=== PATIENT | female | born 1990 | race Two or more races ===

== ENCOUNTER 2017-06-01 23:58 | Inpatient (IN) | payer BC ==
[~2017-06-01] VITALS: Ht 165.1 cm; Wt 81.2 kg
[2017-06-02] MEDS ORDERED: OXYTOCIN 30 UNIT/500 ML PREMIX 500 ML IV PRN ×2 (00:45→15:30)
[2017-06-02] MEDS ORDERED: TERBUTALINE 1 MG/ML VIAL. SQ PRN (00:45)
[2017-06-02] MEDS ORDERED: fentaNYL PF VIAL 100 MCG/2 ML VIAL IV PRN (00:45)
[2017-06-02] MEDS ORDERED: 0.9 % SODIUM CHLORIDE 10 ML DISP.SYRIN. IV PRN ×2 (00:45→15:30)
[2017-06-02] MEDS ORDERED: LIDOCAINE 1% PF 30 ML VIAL. INJ PRN (00:45)
[2017-06-02] MEDS ORDERED: BUTORPHANOL 2 MG/ML VIAL. IV PRN (00:45)
[2017-06-02] MEDS ORDERED: IBUPROFEN 600 MG TABLET. PO PRN (00:45)
[2017-06-02 01:44] LABS: HEMATOCRIT 39.7 % (36.0-47.0); HEMOGLOBIN 13.6 g/dL (12.0-15.5); RED BLOOD COUNT 4.53 x10^6/uL (3.50-5.40); RED CELL DISTRIBUTION WIDTH 13.7 % (11.5-14.5)
[2017-06-02 01:50] VITALS: BP 118/73
[2017-06-02] MEDS: IV RINGERS,LACTATED 1000ML 1,000 ML IV SCH ×2 (02:30→08:26)
--- NOTE | 2017-06-02 15:21 | PDOC1 ---
OB - History Hx of Present Care: Good Care Ultrasounds: Normal mid trimester US Obstetrical Complications: None Medical Complications: None Past Family/Social History * Past Medical, Surgical, Family and Obstetric Histories reviewed from chart. Rubella: Immune RPR/VDRL: Negative GBS Status: Negative HBsAG: Negative OB - Chief Complaint & HPI Date of Admission: Date of Admission: Jun 01, 2017 at 23:58 Chief Complaint/History : 1 EGA: 38 Reason for admission: active labor, rupture of membranes Admission Nurse Assessment Rev: Yes Problems: OB - Admission Exam Physical Exam Vitals: VS - Last 72 Hours, by Label Date Time Temp Pulse Resp B/P (MAP) Pulse Ox O2 Delivery O2 Flow Rate FiO2 06/02/17 11:14 18 Room Air 06/02/17 01:50 98.6 88 20 118/73 (88) Room Air 98.6 HEENT: Normal Heart: Regular Rate Lungs: Clear Abdomen: Gravid, Non tender, Soft Extremities: Edema Reflexes: Normal Cervical Dilatation: 5cm Effacement: 75% Station: -2 Membranes: Ruptured Amniotic Fluid: Clear Heart Rate: Normal Accelerations: Accelerations Present Decelerations: No decelerations Contractions on Admission: < 5 Minutes Apart Intensity: Firm Text A: 38 wks IUP SROM Active labor P; Admit for labor management. GIRISH KENDRICK Jr, MD Jun 02, 2017 15:21
--- NOTE | 2017-06-02 15:22 | PDOC ---
VAGINAL DELIVERY DATE DATE: 06/02/17 TIME: 15:21 : 1 Para: 1 EGA: 38 VAGINAL DELIVERY: VTX VACCUM ASSISTED: No PLACENTA: Spontaneous 8/9 SEX: Male WEIGHT Weight [ 2890 gm] Nuchal Cord: No Amniotic Fluid: Clear PAIN: Natural EPISIOTOMY: Yes (2nd degree midlilne episiotomy) EXTENSION: No REPAIRED WITH 3-0 vicryl EBL 300 ml COMPLICATIONS none CONDITION pt. stable Signs of Intrauterine Infectio: None Shoulder Dystocia: No Problems: GIRISH KENDRICK Jr, MD Jun 02, 2017 15:22
[2017-06-02] MEDS ORDERED: diphenhydrAMINE HCL 25 MG CAPSULE PO PRN (15:30)
[2017-06-02] MEDS ORDERED: oxyCODONE/APAP 5/325 1 TAB TABLET PO PRN (15:30)
[2017-06-02] MEDS ORDERED: IBUPROFEN 800 MG TABLET. PO PRN (15:30)
[2017-06-02] MEDS ORDERED: ACETAMINOPHEN 325 MG TABLET. PO PRN (15:30)
[2017-06-02] MEDS ORDERED: ZOLPIDEM 5 MG TABLET. PO PRN (15:30)
[2017-06-02] MEDS ORDERED: DOCUSATE SODIUM 100 MG CAPSULE. PO PRN (15:30)
[2017-06-02] MEDS ORDERED: BENZOCAINE 20% TOPICAL AEROSOL SPRAY 57GM CAN. TP PRN (15:30)
[2017-06-02] MEDS ORDERED: MMR per PROTOCOL. MC PRN (15:30)
[2017-06-02] MEDS ORDERED: PHENYLEPH/MINERAL OIL/PETROLAT RECTAL OINTMENT 28GM TUBE. RC PRN (15:30)
[2017-06-02] MEDS ORDERED: SIMETHICONE 80 MG TAB.CHEW PO PRN (15:30)
[2017-06-02] MEDS ORDERED: MAG HYDROX/ALUMINUM HYD/SIMETH 30 ML ORAL.SUSP PO PRN (15:30)
[2017-06-02] MEDS ORDERED: MAGNESIUM HYDROXIDE 2,400 MG/30 ML ORAL.SUSP. PO PRN (15:30)
[2017-06-02] MEDS ORDERED: HYDROCORTISONE 1% TOPICAL OINTMENT 30GM TUBE. TP PRN (15:30)
[2017-06-02] MEDS ORDERED: FERROUS SULFATE 325 MG TABLET. PO SCH (17:00)
[2017-06-02 20:42] VITALS: BP 108/52
[2017-06-02 22:11] LABS: RPR REFLEX Non Reactive (Non Reactive)
[2017-06-03 00:46] VITALS: BP 89/37
[2017-06-03 06:21] LABS: BASO % 0 % (0-3); EOS % 0 % (0-3); HEMATOCRIT 33.3 % (36.0-47.0); HEMOGLOBIN 11.3 g/dL (12.0-15.5); LYMPH # 1.9 x10^3/uL (1.0-4.8); LYMPH % 11 % (24-48); MEAN CORPUSCULAR HEMOGLOBIN 30 pg (25-35); MEAN CORPUSCULAR HGB CONC 34 g/dL (31-37); MEAN CORPUSCULAR VOLUME 89 fL (79-100); MONO % 8 % (0-9); NEUT % 81 % (31-73); PLATELET COUNT 120 x10^3/uL (140-400); RED BLOOD COUNT 3.76 x10^6/uL (3.50-5.40); RED CELL DISTRIBUTION WIDTH 13.5 % (11.5-14.5); WHITE BLOOD COUNT 18.4 x10^3/uL (4.0-11.0)
[2017-06-03 06:29] VITALS: BP 104/56
--- NOTE | 2017-06-03 09:10 | PDOC ---
Provider Note Provider Note Doing well VSS uterus NTTP FU in AM AUBRIE GAMBLE MD Jun 03, 2017 09:10
[2017-06-03 10:10] LABS: PLT ESTIMATE ADEQUATE (ADEQUATE)
[2017-06-03 11:20] VITALS: BP 102/58
[2017-06-03 15:45] VITALS: BP 99/56
[2017-06-03 21:40] VITALS: BP 84/50
[2017-06-04 05:27] VITALS: BP 96/61
--- NOTE | 2017-06-04 06:18 | DISCH ---
DISCHARGE INSTRUCTIONS Condition on Discharge Condition on Discharge: Stable Activity After Discharge Activity Instructions for Disc: Activity as tolerated Lifting Instructions after Dis: No heavy lifting Driving Instructions after Dis: Do not drive today Diet after Discharge Diet after Discharge: Regular Contacting the DRAsif after DC Call your doctor for: Concerns you may have Follow-Up Follow up with: Desiree in 6 weeks. GIRISH KENDRICK Jr, MD Jun 04, 2017 06:18
--- NOTE | 2017-06-04 06:18 | PDOC ---
OB Progress Note Date of Service 06/04/17 Time of Evaluation 0615 Notes Pt. feeling well. No complaints. Lab Laboratory Tests Test 06/03/17 04:35 White Blood Count 18.4 x10^3/uL (4.0-11.0) Red Blood Count 3.76 x10^6/uL (3.50-5.40) Hemoglobin 11.3 g/dL (12.0-15.5) Hematocrit 33.3 % (36.0-47.0) Mean Corpuscular Volume 89 fL (79-100) Mean Corpuscular Hemoglobin 30 pg (25-35) Mean Corpuscular Hemoglobin Concent 34 g/dL (31-37) Red Cell Distribution Width 13.5 % (11.5-14.5) Platelet Count 120 x10^3/uL (140-400) Neutrophils (%) (Auto) 81 % (31-73) Lymphocytes (%) (Auto) 11 % (24-48) Monocytes (%) (Auto) 8 % (0-9) Eosinophils (%) (Auto) 0 % (0-3) Basophils (%) (Auto) 0 % (0-3) Neutrophils # (Auto) 14.8 x10^3uL (1.8-7.7) Lymphocytes # (Auto) 1.9 x10^3/uL (1.0-4.8) Monocytes # (Auto) 1.5 x10^3/uL (0.0-1.1) Eosinophils # (Auto) 0.1 x10^3/uL (0.0-0.7) Basophils # (Auto) 0.0 x10^3/uL (0.0-0.2) Segmented Neutrophils % 55 % (35-66) Band Neutrophils % 28 % (0-9) Lymphocytes % 9 % (24-48) Monocytes % 8 % (0-10) Platelet Estimate Adequate (ADEQUATE) Medications Current Medications Sodium Chloride (Normal Saline Flush) 3 ml QSHIFT PRN IV AFTER MEDS AND BLOOD DRAWS; Start 06/02/17 at 00:45 Ringer's Solution 1,000 ml @ 125 mls/hr Q8H IV Last administered on 06/02/17t 08:26; Start 06/02/17 at 00:38 Butorphanol Tartrate (Stadol) 2 mg PRN Q1HR PRN IV Severe labor pain; Start 06/02/17 at 00:45 Fentanyl Citrate (Fentanyl 2ml Vial) 100 mcg PRN Q30MIN PRN IV Severe pain Last administered on 06/02/17 11:14; Start 06/02/17 at 00:45 Terbutaline Sulfate (Brethine) 0.25 mg 1X PRN PRN SQ SEE COMMENTS; Start at 00:45; Stop 06/03/17 at 00:44; Status DC Lidocaine HCl 30 ml 1X PRN PRN INJ SEE COMMENTS Last administered on 06/02/17 15:01; Start 06/02/17 at 00:45; Stop 06/04/17 at 00:44; Status DC Oxytocin/Sodium Chloride 500 ml @ 0 mls/hr CONT PRN PRN IV Post delivery bleeding Last administered on 06/02/17 02:30; Start 06/02/17 at 00:45 Ibuprofen (Motrin) 600 mg PRN Q6HRS PRN PO PAIN; Start 06/02/17 at 00:45; Stop 06/02/17 at 18:19; Status DC Sodium Chloride (Normal Saline Flush) 10 ml QSHIFT PRN IV AFTER MEDS AND BLOOD DRAWS; Start 06/02/17 at 15:30 Oxytocin/Sodium Chloride 500 ml @ 62.5 mls/hr CONT PRN IV SEE I/O RECORD; Start 06/02/17 at 15:30; Stop 06/02/17 at 23:29; Status DC Acetaminophen (Tylenol) 650 mg PRN Q6HRS PRN PO MILD PAIN / TEMP; Start at 15:30 Ibuprofen (Motrin) 800 mg PRN Q8HRS PRN PO INFLAMMATION/PAIN PREVENTION Last administered on 06/02/17 17:09; Start 06/02/17 at 15:30 Docusate Sodium (Colace) 100 mg PRN BID PRN PO CONSTIPATION; Start 06/02/17 at 15:30 Magnesium Hydroxide (Milk Of Magnesia) 2,400 mg PRN DAILY PRN PO CONSTIPATION; Start 06/02/17 at 15:30 Al Hydroxide/Mg Hydroxide (Mylanta Plus Xs) 30 ml PRN Q4HRS PRN PO HEARTBURN / GAS; Start 06/02/17 at 15:30 Simethicone (Gas-X) 80 mg PRN AFTMEALHC PRN PO GAS / BLOATING; Start 06/02/17 at 15:30 Diphenhydramine HCl (Benadryl) 25 mg PRN Q6HRS PRN PO ITCHING; Start 06/02/17 at 15:30 Benzocaine (Americaine) 1 spray PRN QID PRN TP TOPICAL PAIN Last administered on 06/02/17t 17:11; Start 06/02/17 at 15:30 Phenyleph/Shark Oil/Min Oil/Petrol (Preparation H) 1 jen PRN QID PRN RC RECTAL PAIN; Start 06/02/17 at 15:30 Hydrocortisone (Cortaid) 1 jen PRN QID PRN TP PERINEAL PAIN; Start 06/02/17 at 15:30 Ferrous Sulfate (Feosol) 325 mg BIDWMEALS PO ; Start 06/02/17 at 17:00; Stop 06/03 at 10:21; Status DC Zolpidem Tartrate (Ambien) 5 mg PRN QHS PRN PO INSOMNIA, MAY REPEAT X1; Start 06/02/17 at 15:30 Info (Do NOT chart on this placeholder) 1 ea 1X PRN PRN MC SEE COMMENTS; Start 06/02/17 at 15:30 Info (Do NOT chart on this placeholder) 1 ea 1X PRN PRN MC SEE COMMENTS; Start 06/02/17 at 15:30 Oxycodone/ Acetaminophen (Percocet 5/325) 2 tab PRN Q4HRS PRN PO MODERATE PAIN , SEVERE PAIN; Start 06/02/17 at 15:30 Exam Abd: soft, non tender, fundus firm Assessment PPD#2 s/p Plan of Care: See new orders (D/c home.) GIRISH KENDRICK Jr, MD Jun 04, 2017 06:18
[2017-06-04] MEDS ORDERED: NAPR500T PO (06:19)
[2017-06-04] MEDS ORDERED: HYDR-971 PO (06:19)
[2017-06-04 13:54] VITALS: BP 113/66
== END 2017-06-04 15:30 | disposition home or self-care (01) | DRG 775 ==
LOC: OBSVTOIN 23:58 → 3 SO LND 23:58 → 3 NORTH 06-02 18:18
PROVIDERS: ADMIT Specialist; ATTEND Specialist
PROC: 10E0XZZ Delivery of Products of Conception, External Approach (ICD-10-PCS; principal; 2017-06-02)
PROC: 0KQM0ZZ Repair Perineum Muscle, Open Approach (ICD-10-PCS; 2017-06-02)
PROC: 0W8NXZZ Division of Female Perineum, External Approach (ICD-10-PCS; 2017-06-02)
DX: O70.1 Second degree perineal laceration during delivery (principal); Z37.0 Single live birth; Z3A.38 38 weeks gestation of pregnancy
CPT/HCPCS: 36415; 85007; 85027; 86593; 86850; 86900; 86901; G0378; J2590; J3010; J7120

== ENCOUNTER 2021-05-07 20:54 | Emergency (ER) | payer MEDICAID ==
[~2021-05-07] VITALS: Ht 177.8 cm; Wt 77.3 kg
[~2021-05-07 20:54] MED LIST: HYDR-3164 PO; IBUP-1027 PO; NAPR-683 PO
[2021-05-07] MEDS ORDERED: FAMOTIDINE 20 MG/2 ML VIAL IVP ONE (23:00)
[2021-05-07] MEDS ORDERED: IV NORMAL SALINE 1000ML BAG 1,000 ML IV ONE (23:00)
[2021-05-07] MEDS ORDERED: ONDANSETRON PF 4 MG/2 ML VIAL. IVP ONE (23:00)
[2021-05-07 23:02] LABS: BILIRUBIN,URINE NEGATIVE (NEG); CLARITY,URINE CLOUDY; COLOR,URINE YELLOW; NITRITE,URINE NEGATIVE (NEG); PROTEIN,URINE NEGATIVE (NEG-TRACE); UROBILINOGEN,URINE 0.2 mg/dL (0.2 mg/dL)
[2021-05-07 23:07] LABS: BACTERIA,URINE FEW /HPF (0-FEW); RBC,URINE 0 /HPF (0-2)
[2021-05-07 23:08] LABS: AMORPHOUS SEDIMENT,UR PRESENT /HPF
[2021-05-07 23:10] LABS: BASO # 0.1 x10^3/uL (0.0-0.2); BASO % 1 % (0-3); EOS % 0 % (0-3); HEMATOCRIT 40.9 % (36.0-47.0); HEMOGLOBIN 13.9 g/dL (12.0-15.5); LYMPH # 1.1 x10^3/uL (1.0-4.8); LYMPH % 8 % (24-48); MEAN CORPUSCULAR HEMOGLOBIN 27 pg (25-35); MEAN CORPUSCULAR HGB CONC 34 g/dL (31-37); MEAN CORPUSCULAR VOLUME 80 fL (79-100); MONO # 0.8 x10^3/uL (0.0-1.1); MONO % 6 % (0-9); NEUT # 11.4 x10^3/uL (1.8-7.7); NEUT % 85 % (31-73); PLATELET COUNT 172 x10^3/uL (140-400); RED BLOOD COUNT 5.14 x10^6/uL (3.50-5.40); RED CELL DISTRIBUTION WIDTH 13.7 % (11.5-14.5); WHITE BLOOD COUNT 13.4 x10^3/uL (4.0-11.0)
[2021-05-07 23:17] LABS: CALCIUM 8.9 mg/dL (8.5-10.1); CREATININE 0.8 mg/dL (0.6-1.0); GFR 83.1
[2021-05-07 23:23] LABS: ALBUMIN 3.1 g/dL (3.4-5.0); ALBUMIN/GLOBULIN RATIO 0.9 (1.0-1.7); MAGNESIUM 2.1 mg/dL (1.8-2.4); TOTAL BILIRUBIN 0.5 mg/dL (0.2-1.0); TOTAL PROTEIN 6.7 g/dL (6.4-8.2)
[2021-05-07 23:42] LABS: % BANDS 1 % (0-9); % LYMPHS 13 % (24-48); % MONOS 3 % (0-10); % SEGS 83 % (35-66); PLT ESTIMATE ADEQUATE (ADEQUATE)
[2021-05-08] MEDS ORDERED: FAMO-63 PO (01:04)
[2021-05-08] MEDS ORDERED: ONDA4TAB12 PO (01:04)
--- NOTE | 2021-05-08 01:04 | PHYS DOC ---
Past Medical History Past Medical History: No Pertinent History Past Surgical History: No Surgical History Smoking Status: Never Smoker Alcohol Use: None General Adult EDM: Chief Complaint: ABDOMINAL PAIN HPI: HPI: Patient is a 30 year old [f__sex] who presents with [] Review of Systems: Review of Systems: Constitutional: Denies fever or chills. [] Eyes: Denies change in visual acuity. [] HENT: Denies nasal congestion or sore throat. [] Respiratory: Denies cough or shortness of breath. [] Cardiovascular: Denies chest pain or edema. [] GI: Denies abdominal pain, nausea, vomiting, bloody stools or diarrhea. [] : Denies dysuria. [] Musculoskeletal: Denies back pain or joint pain. [] Integument: Denies rash. [] Neurologic: Denies headache, focal weakness or sensory changes. [] Endocrine: Denies polyuria or polydipsia. [] Lymphatic: Denies swollen glands. [] Psychiatric: Denies depression or anxiety. [] Heart Score: Risk Factors: Risk Factors: DM, Current or recent (<one month) smoker, HTN, HLP, family history of CAD, obesity. Risk Scores: Score 0 - 3: 2.5% MACE over next 6 weeks - Discharge Home Score 4 - 6: 20.3% MACE over next 6 weeks - Admit for Clinical Observation Score 7 - 10: 72.7% MACE over next 6 weeks - Early Invasive Strategies Current Medications: Current Medications Medications (Trade) Dose Ordered Sig/Tyrone Start Time Stop Time Status Last Admin Dose Admin Famotidine (Pepcid Vial) 20 mg 1X ONCE 05/07/21 23:00 05/07/21 23:01 DC 05/08/21 00:00 20 MG Ondansetron HCl (Zofran) 4 mg 1X ONCE 05/07/21 23:00 05/07/21 23:01 DC 05/08/21 00:00 4 MG Sodium Chloride 1,000 ml @ 1,000 mls/hr 1X ONCE 05/07/21 23:00 05/07/21 23:59 DC 05/08/21 00:00 1,000 MLS/HR Allergies: Allergies: Allergies Coded Allergies Type Severity Reaction Last Updated Verified No Known Drug Allergies 06/02/17 No Physical Exam: PE: Constitutional: Well developed, well nourished, no acute distress, non-toxic appearance. [] HENT: Normocephalic, atraumatic, bilateral external ears normal, oropharynx moist, no oral exudates, nose normal. [] Eyes: PERRLA, EOMI, conjunctiva normal, no discharge. [] Neck: Normal range of motion, no tenderness, supple, no stridor. [] Cardiovascular:Heart rate regular rhythm, no murmur [] Lungs & Thorax: Bilateral breath sounds clear to auscultation [] Abdomen: Bowel sounds normal, soft, no tenderness, no masses, no pulsatile masses. [] Skin: Warm, dry, no erythema, no rash. [] Back: No tenderness, no CVA tenderness. [] Extremities: No tenderness, no cyanosis, no clubbing, ROM intact, no edema. [] Neurologic: Alert and oriented X 3, normal motor function, normal sensory function, no focal deficits noted. [] Psychologic: Affect normal, judgement normal, mood normal. [] Current Patient Data: Labs: Laboratory Tests Test 05/07/21 22:50 05/07/21 22:56 05/07/21 23:00 Urine Collection Type Unknown Urine Color Yellow Urine Clarity Cloudy Urine pH 7.0 (<5.0-8.0) Urine Specific [place] >=1.030 (1.000-1.030) Urine Protein Negative mg/dL (NEG-TRACE) Urine Glucose (UA) Negative mg/dL (NEG) Urine Ketones (Stick) Negative mg/dL (NEG) Urine Blood Negative (NEG) Urine Nitrite Negative (NEG) Urine Bilirubin Negative (NEG) Urine Urobilinogen Dipstick 0.2 mg/dL (0.2 mg/dL) Urine Leukocyte Esterase Small (NEG) Urine RBC 0 /HPF (0-2) Urine WBC 5-10 /HPF (0-4) Urine Squamous Epithelial Cells Many /LPF Urine Amorphous Sediment Present /HPF Urine Bacteria Few /HPF (0-FEW) Urine Mucus Slight /LPF POC Urine HCG, Qualitative Hcg negative (Negative) White Blood Count 13.4 x10^3/uL (4.0-11.0) H Red Blood Count 5.14 x10^6/uL (3.50-5.40) Hemoglobin 13.9 g/dL (12.0-15.5) Hematocrit 40.9 % (36.0-47.0) Mean Corpuscular Volume 80 fL (79-100) Mean Corpuscular Hemoglobin 27 pg (25-35) Mean Corpuscular Hemoglobin Concent 34 g/dL (31-37) Red Cell Distribution Width 13.7 % (11.5-14.5) Platelet Count 172 x10^3/uL (140-400) Neutrophils (%) (Auto) 85 % (31-73) H Lymphocytes (%) (Auto) 8 % (24-48) L Monocytes (%) (Auto) 6 % (0-9) Eosinophils (%) (Auto) 0 % (0-3) Basophils (%) (Auto) 1 % (0-3) Neutrophils # (Auto) 11.4 x10^3/uL (1.8-7.7) H Lymphocytes # (Auto) 1.1 x10^3/uL (1.0-4.8) Monocytes # (Auto) 0.8 x10^3/uL (0.0-1.1) Eosinophils # (Auto) 0.0 x10^3/uL (0.0-0.7) Basophils # (Auto) 0.1 x10^3/uL (0.0-0.2) Segmented Neutrophils % 83 % (35-66) H Band Neutrophils % 1 % (0-9) Lymphocytes % 13 % (24-48) L Monocytes % 3 % (0-10) Platelet Estimate Adequate (ADEQUATE) Sodium Level 143 mmol/L (136-145) Potassium Level 4.0 mmol/L (3.5-5.1) Chloride Level 106 mmol/L (98-107) Carbon Dioxide Level 28 mmol/L (21-32) Anion Gap 9 (6-14) Blood Urea Nitrogen 13 mg/dL (7-20) Creatinine 0.8 mg/dL (0.6-1.0) Estimated GFR (Cockcroft-Gault) 83.1 BUN/Creatinine Ratio 16 (6-20) Glucose Level 130 mg/dL (70-99) H Calcium Level 8.9 mg/dL (8.5-10.1) Magnesium Level 2.1 mg/dL (1.8-2.4) Total Bilirubin 0.5 mg/dL (0.2-1.0) Aspartate Amino Transferase (AST) 155 U/L (15-37) H Alanine Aminotransferase (ALT) 103 U/L (14-59) H Alkaline Phosphatase 144 U/L (46-116) H Total Protein 6.7 g/dL (6.4-8.2) Albumin 3.1 g/dL (3.4-5.0) L Albumin/Globulin Ratio 0.9 (1.0-1.7) L Lipase 136 U/L (73-393) Laboratory Tests 05/07/21 23:00 Laboratory Tests 05/07/21 23:00 Vital Signs: Vital Signs Date Time Temp Pulse Resp B/P (MAP) Pulse Ox O2 Delivery O2 Flow Rate FiO2 05/07/21 22:00 98.0 119 23 137/78 (97) 98 Room Air 98.0 EKG: EKG: [] Radiology/Procedures: Radiology/Procedures: PROCEDURE: ABDOMEN LTD US ABDOMEN LTD History: Reason: RUQ pain / Spl. Instructions: / History: Comparison: None. Technique: Transabdominal ultrasound images are obtained of the right upper quadrant. Findings: Liver is normal in echogenicity. Right hepatic lobe measures 19.2 cm. Portal flow is hepatopedal. Cholelithiasis within the neck of the gallbladder. No gallbladder wall thickening or pericholecystic fluid. Negative sonographic Hart sign. Common bile duct measures 3 mm in diameter. Visualized pancreas not well seen due to overlying bowel gas. The right kidney measures 10.4 x 6.3 x 4.9 cm. No hydronephrosis. Visualized portions of the aorta and IVC have normal caliber. IMPRESSION: 1. Cholelithiasis. 2. Hepatomegaly. Electronically signed by: Ruel Medel DO (05/08/2021 1:11 AM) [facility] Course & Med Decision Making: Course & Med Decision Making Pertinent Labs and Imaging studies reviewed. (See chart for details) [] Dragon Disclaimer: Dragon Disclaimer: This electronic medical record was generated, in whole or in part, using a voice recognition dictation system. Departure Departure Impression: Primary Impression: Cholelithiasis Qualified Codes: K80.20 - Calculus of gallbladder without cholecystitis without obstruction Additional Impression: Elevated LFTs Disposition: HOME / SELF CARE / HOMELESS Condition: STABLE Referrals: NO PCP (PCP) OLAYINKA NEVILLE MD Patient Instructions: Cholelithiasis, Mere-ys-[id number], Fat and Cholesterol Control Diet, [id number] Additional Instructions: May take over the counter pain medication as needed. Please follow with your doctor for recheck of your liver enzymes. Scripts Ondansetron (ONDANSETRON ODT) 4 Mg Tab.rapdis 1 TAB PO PRN Q6-8HRS PRN for NAUSEA, #16 TAB Prov: MAR MARTINEZ DO 05/08/21 Famotidine (PEPCID) 20 Mg Tablet 20 MG PO HS, #20 TAB Prov: MAR MARTINEZ DO 05/08/21 MAR MARTINEZ DO May 08, 2021 01:04
[2021-05-08 01:07] VITALS: BP 120/63
--- NOTE | 2021-05-08 01:13 | RAD ---
US ABDOMEN LTD History: Reason: RUQ pain / Spl. Instructions: / History: Comparison: None. Technique: Transabdominal ultrasound images are obtained of the right upper quadrant. Findings: Liver is normal in echogenicity. Right hepatic lobe measures 19.2 cm. Portal flow is hepatopedal. Cholelithiasis within the neck of the gallbladder. No gallbladder wall thickening or pericholecystic fluid. Negative sonographic Hart sign. Common bile duct measures 3 mm in diameter. Visualized pancreas not well seen due to overlying bowel gas. The right kidney measures 10.4 x 6.3 x 4.9 cm. No hydronephrosis. Visualized portions of the aorta and IVC have normal caliber. IMPRESSION: 1. Cholelithiasis. 2. Hepatomegaly. Electronically signed by: Ruel Medel DO (05/08/2021 1:11 AM) [facility]
== END 2021-05-08 01:20 | disposition home or self-care (01) ==
LOC: ER 20:54
DX: K80.20 Calculus of gallbladder without cholecystitis without obstruction (principal); R16.0 Hepatomegaly, not elsewhere classified
CPT/HCPCS: 36415; 76705; 80053; 81001; 81025; 83690; 83735; 85007; 85025; 87086; 96361; 96374; 96375; 99285; J2405; J3490; J7030

== ENCOUNTER → 2021-12-27 | Outpatient (CLI) | payer MEDICAID ==
[~2021-12-27] MED LIST changes: +FAMO-63 PO; +ONDA4TAB12 PO
--- NOTE | 2021-12-27 08:22 | RAD ---
INDICATION: Reason: CHOLELITHIASIS / Spl. Instructions: / History: COMPARISON: May 2021 TECHNIQUE: Grayscale and color ultrasound images obtained through the abdomen. FINDINGS: Pancreas: Largely obscured Liver: Echogenic Gallbladder: Gallstones are identified Common Bile Duct: Not dilated. Right Kidney: No hydronephrosis. Left Kidney: No hydronephrosis. Spleen: Unremarkable. Aorta/IVC: Limited visualization secondary to overlying structures IMPRESSION: * Partially contracted gallbladder with gallstones. No common bile duct dilation. Gallbladder wall n ot grossly thickened for degree of contraction. Electronically signed by: Eddy Muñoz MD (12/27/2021 8:19 AM) [id number]
== END ==
LOC: US 07:47
PROVIDERS: ATTEND Specialist
DX: K80.11 Calculus of gallbladder with chronic cholecystitis with obstruction (principal)
CPT/HCPCS: 76700

== ENCOUNTER → 2022-01-04 | Outpatient (CLI) | payer MEDICAID ==
[~2022-01-04] MED LIST changes: +OXYC1TAB19 PO
[2022-01-04 14:08] LABS: BASO % 0 % (0-3); EOS # 0.1 x10^3/uL (0.0-0.7); EOS % 1 % (0-3); HEMATOCRIT 38.4 % (36.0-47.0); HEMOGLOBIN 13.1 g/dL (12.0-15.5); LYMPH # 2.1 x10^3/uL (1.0-4.8); LYMPH % 29 % (24-48); MEAN CORPUSCULAR HEMOGLOBIN 26 pg (25-35); MEAN CORPUSCULAR HGB CONC 34 g/dL (31-37); MEAN CORPUSCULAR VOLUME 77 fL (79-100); MONO # 0.5 x10^3/uL (0.0-1.1); MONO % 7 % (0-9); NEUT # 4.6 x10^3/uL (1.8-7.7); NEUT % 63 % (31-73); PLATELET COUNT 202 x10^3/uL (140-400); RED BLOOD COUNT 4.98 x10^6/uL (3.50-5.40); WHITE BLOOD COUNT 7.3 x10^3/uL (4.0-11.0)
[2022-01-04 14:23] LABS: ALBUMIN 2.7 g/dL (3.4-5.0); ALBUMIN/GLOBULIN RATIO 0.7 (1.0-1.7); CALCIUM 8.1 mg/dL (8.5-10.1); CREATININE 0.6 mg/dL (0.6-1.0); GFR 115.1; POTASSIUM 3.6 mmol/L (3.5-5.1); POTASSIUM 3.7 mmol/L (3.5-5.1); TOTAL BILIRUBIN 0.3 mg/dL (0.2-1.0); TOTAL PROTEIN 6.6 g/dL (6.4-8.2); TOTAL PROTEIN 6.8 g/dL (6.4-8.2)
== END ==
LOC: SURGPAT 12:58
PROVIDERS: ATTEND Specialist
DX: K80.10 Calculus of gallbladder with chronic cholecystitis without obstruction (principal); Z01.812 Encounter for preprocedural laboratory examination
CPT/HCPCS: 36415; 80053; 85025

== ENCOUNTER 2022-01-09 07:29 | Day surgery (SDC) | payer MEDICAID ==
[2022-01-04 13:27] VITALS: BP 135/69
[~2022-01-09] VITALS: Ht 167.6 cm; Wt 72.0 kg
--- NOTE | 2022-01-09 03:01 | HP ---
DATE OF SERVICE: 01/08/2022 ADMIT DATE: 01/09/2022 HISTORY OF PRESENT ILLNESS: The patient had acute attack of cholecystitis in 05/2021. She was seen by Dr. Bee ultrasound was taken and it showed gallstones. She got over this attack and has not had problems since then. She did have an ultrasound as stated before at that time, which showed gallstones. PAST MEDICAL HISTORY: Shows normal childhood diseases. PAST SURGICAL HISTORY: She has had no abdominal surgery. MEDICATIONS: Takes no medications. ALLERGIES: She has no allergies. SOCIAL HISTORY: Shows she does not drink, smoke or use illicit drugs. FAMILY HISTORY: Noncontributory. REVIEW OF SYSTEMS: At this point is unremarkable and negative. PHYSICAL EXAMINATION: GENERAL: Shows an alert female in no acute distress. HEAD, EYES, EARS, NOSE AND THROAT: Grossly normal. CHEST: Clear bilaterally to auscultation. HEART: Unremarkable with no murmurs, heaves, friction rubs, thrills and had a regular rate of 72 beats per minute. ABDOMEN: Soft. There was no organomegaly, no tenderness, no rebound, guarding or other abnormalities. RECTAL: Not done. EXTREMITIES: Grossly normal. ASSESSMENT: Cholelithiasis. PLAN: The patient understands the risks of surgery, understands we would try to do it laparoscopically, but may have to do it open and may do cholangiogram. She wishes to have this done and we will proceed. NALLELY/NICKY/IAIN DR: Dimas TID: [id number] [facility]
[~2022-01-09 07:29] MED LIST changes: +HYDROmorphone 2 MG/ML INJ. IVP PRN; +LIDOCAINE 2% PF 5 ML VIAL. ONE; -OXYC1TAB19 PO; +PROCHLORPERAZINE 10 MG/2 ML VIAL. IVP PRN; +PROPOFOL 10 MG/ML (20ML) VIAL. IV ONE; +ROCURONIUM 50 MG/5 ML VIAL. ONE; +ceFAZolin SODIUM IV Push 1 GM VIAL. IVP PRN; +fentaNYL PF VIAL 100 MCG/2 ML VIAL IVP PRN; +fentaNYL PF VIAL 250 MCG/5 ML VIAL ONE
[2022-01-09 07:56] VITALS: BP 123/81
[2022-01-09] MEDS ORDERED: SCOPOLAMINE 1.5MG PATCH. TD ONE (08:15)
[2022-01-09] MEDS: IV RINGERS,LACTATED 1000ML 1,000 ML IV SCH ×2 (08:15→10:32)
[2022-01-09] MEDS ORDERED: BUPIVACAINE-EPI 0.5% 30 ML VIAL KIT. ONE ×2 (08:53→11:47)
[2022-01-09] MEDS ORDERED: IOHEXOL 300 MG/ML 50 ML VIAL. ONE (08:53)
--- NOTE | 2022-01-09 09:15 | PDOC ---
SURGICAL PROGRESS NOTE DATE: 01/09/22 TIME: 09:12 Op Note: Surgeon............................................Mclain Pre opr dioag.....................................chronic cholecystitis and cholelithiasis Post op diag......................................same Anesthesia........................................general Procedure.........................................Lap cayla with grams Drains..............................................none Fluids..............................................see anesthesia sheet Blood loss.........................................10cc Condition..........................................satisfactory Vital Signs Vital Signs Date Time Temp Pulse Resp B/P (MAP) Pulse Ox O2 Delivery O2 Flow Rate FiO2 01/09/22 08:05 97.9 88 18 123/81 99 Room Air 97.9 Labs Laboratory Tests Test 01/09/22 07:47 Bedside Urine HCG, Qualitative Hcg negative (Negative) Laboratory Tests Test 01/09/22 07:47 Bedside Urine HCG, Qualitative Hcg negative (Negative) RAHEEL MCLAIN MD Jan 09, 2022 09:15
[2022-01-09] MEDS ORDERED: ONDANSETRON PF 4 MG/2 ML VIAL. ONE (09:37)
[2022-01-09] MEDS ORDERED: ROCURONIUM 50 MG/5 ML VIAL. ONE (09:37)
[2022-01-09] MEDS ORDERED: DEXAMETHASONE SOD PHOS 4 MG/ML VIAL ONE (09:38)
[2022-01-09] MEDS ORDERED: SUGAMMADEX SODIUM 200 MG/2 ML VIAL. IVP ONE (10:00)
[2022-01-09] MEDS ORDERED: GLYCOPYRROLATE 1 MG/5 ML VIAL. ONE (10:11)
--- NOTE | 2022-01-09 10:54 | RAD ---
EXAM: Intraoperative cholangiogram. HISTORY: Cholecystectomy. Pain. COMPARISON: Sonogram dated 12/27/2021. FINDINGS: 4 fluoroscopic images were obtained during an intraoperative cholangiogram. The total fluor oscopy time is 0.26 minutes. The images demonstrate contrast opacification of the downstream biliary tree, downstream pancreatic duct and proximal small bowel. There is slight irregularity of the distal common bile duct lumen which may be due to a spasm. There is no convincing biliary stone. IMPRESSION: Intraoperative cholangiogram without a convincing biliary stone. Electronically signed by: Yoselyn Valenzuela MD (01/09/2022 10:51 AM) [id number]
[2022-01-09] MEDS ORDERED: LABETALOL 20 MG/4 ML DISP.SYRIN. IVP ONE (11:46)
[2022-01-09] MEDS ORDERED: BUPIVACAINE-EPI 0.5% 30 ML VIAL KIT. INJ ONE (11:52)
--- NOTE | 2022-01-09 12:27 | DISCH ---
DISCHARGE INSTRUCTIONS Condition on Discharge Condition on Discharge: Stable Activity After Discharge Activity Instructions for Disc: Avoid exertion, Other, see below Lifting Instructions after Dis: No heavy lifting, No pulling or pushing, Do not lift >10 pounds Driving Instructions after Dis: Do not drive today, Other, see below Weight Bearing Status after Di: No restrictions Diet after Discharge Diet after Discharge: Clear Liquid, Regular Diet Texture: Regular Wound Incision Care Other wound/incision instructi: leave dressing on as long as possible..may shower Contacting the DR. after DC Call your doctor for: Concerns you may have Follow-Up Follow up with: call and make appt to see me in 10-14 days Treatment/Equipment after DC Adaptive Equipment Issued: None RAHEEL MCLAIN MD Jan 09, 2022 12:27
[2022-01-09] MEDS ORDERED: MORPHINE SULFATE 2 MG/ML INJ. ONE (12:39)
[2022-01-09] MEDS ORDERED: fentaNYL PF VIAL 100 MCG/2 ML VIAL ONE (12:39)
[2022-01-09] MEDS: fentaNYL PF VIAL 100 MCG/2 ML VIAL IVP PRN ×2 (12:43→12:50)
[2022-01-09] MEDS: MORPHINE SULFATE 2 MG/ML INJ. IVP PRN ×2 (12:44→12:58)
[2022-01-09] MEDS ORDERED: OXYC1TAB19 PO (12:53)
[2022-01-09 12:55] VITALS: BP 122/60
[2022-01-09] MEDS ORDERED: oxyCODONE/APAP 7.5/325 1 TAB TABLET PO ONE (13:00)
--- NOTE | 2022-01-09 19:05 | OP ---
DATE OF SURGERY: 01/09/2022 SURGEON: Mikael Chavez MD PREOPERATIVE DIAGNOSES: Chronic cholecystitis and cholelithiasis. POSTOPERATIVE DIAGNOSES: Chronic cholecystitis and cholelithiasis. ANESTHESIA: General. PROCEDURE: Laparoscopic cholecystectomy with intraoperative cholangiogram. TECHNIQUE: Under general anesthesia, the patient was properly prepped and draped in the routine fashion. Laparoscopic technique was used and the first incision was in the infraumbilical area made about a centimeter in size. We put up on either side with towel clips and passed the Veress needle into the peritoneal cavity. We then put about 2-3 mL of saline and it flowed freely with gravity into the peritoneal cavity. We then insufflated the abdomen with CO2 up to 15 and then removed the Veress needle and placed the 11 mm trocar. We then placed the camera there and all appeared well in the abdomen. There were no abnormalities, no bleeding. As such, a noncutting trocar was placed in the epigastrium just to the right of the falciform ligament and 5 mm ports were placed in the right upper quadrant and lateral quadrants on the right. We then placed the graspers in the lateral ports and the dissector in the epigastric port. With the patient in reverse Trendelenburg left side down, we then identified the gallbladder and grasped the fundus of the gallbladder with the left lateral grasper. We pushed this up towards the right shoulder and then grasped the ampulla with the right upper quadrant grasper. We identified the tissues over this area slowly pulled away the peritoneum. We identified the cystic duct spread around it at the junction of the cystic duct and the gallbladder. We then clamped this portion of the gallbladder side of the cystic duct twice with clips. We then passed the needle and then the catheter for cholangiograms into the abdomen with the syringe on top, making certain there was no air there. We then used the [place] grasper to grasp the catheter. Before this was done, we made a small mateo of the cystic duct using the scissors just on the patient's side of the clips that had been placed on the gallbladder side of the cystic duct. We then passed the catheter in there, clipped it in place and got cholangiograms. The dye flowed freely into the peritoneal cavity. There were no defects in the biliary system and no evidence of stone or other abnormalities. The radiologist read this as normal. We then removed the clip and the catheter and then clipped the cystic duct twice on the patient's side and then divided it. There were no bile leaks and no evidence of any leaks of biliary system. The cystic artery was then isolated and clipped twice on the patient's side, once on the gallbladder side and divided. We then slowly used the Harmonic scalpel to slowly shell the gallbladder out of the gallbladder fossa. There was some scarring anteriorly and we got up to the fundus of the gallbladder, but slowly removed it from the gallbladder bed. There was minimal damage to the liver edge and no evidence of bleeding or bile leaks. This was slowly removed and before we completely removed the gallbladder, we looked at the gallbladder bed and the hilum of the gallbladder. There were no bile leaks, no bleeding and all was well. We then amputated the gallbladder from the liver tip. We then placed the camera in the umbilical port in the epigastric port and placed the gallbladder grasper into the umbilical port and this was where the EndoCatch basket was placed. We then placed the gallbladder in this and then closed it. We then followed the gallbladder out to the umbilicus and slowly could not get the gallbladder out, made about a centimeter incision in the fascia longitudinally and we were able to deliver the gallbladder with a stone. We inspected all areas. The small rent in the fascia was approximated using 3 interrupted 0 Prolene sutures and these were tied. We then looked at the anterior abdominal wall. There was no evidence of any damage to any intra-abdominal contents. The closure had been well and was airtight. We then inspected the area. A bit of blood was removed from the lateral liver edge laterally. Then, the CO2 was removed from the abdomen totally and all graspers were removed. All the ports were removed also. We then anesthetized the fascia at the umbilicus and the infraumbilical area at the surgical sutured site. This terminated this portion of the procedures. All incisions were irrigated and the subcutaneous was approximated using 4-0 Vicryl and the skin was closed in all locations using a subcuticular 5-0 Vicryl. Procedure was now terminated as sterile Tegaderm dressings were applied. The blood loss was about 10 mL. Fluids given can be obtained from the anesthesia sheet. No drains were used and the condition of the patient satisfactory as she has returned to the recovery room. NALLELY/KARLEY DR: NALLELY/charisse TID: [id number]
--- NOTE | 2022-01-11 16:06 | PATHOLOGY ---
[facility] Accession Number: [id number] . 01 Material submitted: . gallbladder - GALLBLADDER AND CONTENTS . 01 Clinical history: . CHOLECYSTITIS LAPAROSCOPIC CHOLECYSTECTOMY . 02 Diagnosis: Gallbladder, laparoscopic cholecystectomy: - Cholelithiasis. - Cholesterolosis. - Chronic cholecystitis. - Reactive changes of gallbladder neck lymph node. LBQ 01/11/2022 0958 Local . 02 Comment: There is no evidence of malignancy. (JPM/db; 01/11/2022) . 02 Electronically signed: . Janak Jay MD, Pathologist NPI- [id number] . 01 Gross description: . Fixative: Formalin Labeled: Gallbladder and contents Specimen received: Intact gallbladder Dimensions: 7.5 x 2.6 x 2.6 cm Serosa: Light menendez-jon, with light menendez-yellow to light green, shaggy and cauterized adventitia Lymph node: Single lymph node found near neck measuring 0.6 x 0.4 x 0.4 centimeters Mucosa: Velvety and bile-stained and with yellow stippling Average wall thickness: 0.2 cm Calculi: Single dark menendez-yellow and bile-stained calculus found within body measuring 1.5 x 1.3 x 1.2 cm Abnormalities: None identified . A1- [place] Caster body, fundus, and the cystic duct margin. A2-lymph node, bisected ([facility]; 01/10/2022) [facility] 01/10/2022 1206 Local . 02 Pathologist provided ICD-10: K80.10, K82.4 . 02 CPT . 447344 Specimen Comment: A courtesy copy of this report has been sent to [phone] Specimen Comment: Report sent to Performed at: 01 [facility] [place] [id number] [facility] [address], [place], [place] [id number] MD Scott Henderson MD Phone: [phone] Performed at: 02 [facility] [address] [place], [place] [id number] MD Janak Jay MD Phone: [phone]
== END 2022-01-09 13:45 | disposition home or self-care (01) ==
LOC: SURG 07:29
PROVIDERS: ATTEND Specialist
DX: K80.10 Calculus of gallbladder with chronic cholecystitis without obstruction (principal); Z79.899 Other long term (current) drug therapy; Z98.890 Other specified postprocedural states
CPT/HCPCS: 47563; 74300; 81025; A4213; A4314; A4930; A6219; A6257; A6402; C1887; J0690; J1100; J2270; J2405; J2704; J3010; J3490; Q9967; A4223; A4657